=== PATIENT | male | born 1990 | race Caucasian/White ===

== ENCOUNTER 2017-08-17 22:19 | Emergency (ER) | payer OTHER ==
[2017-08-17 22:35] VITALS: BP 130/70; PULSE 86; TEMP 97.8; BMI 26.6
[2017-08-17] MEDS ORDERED: ACETAMINOPHEN 500 MG TABLET (FP) PO ONE (23:41)
--- NOTE | 2017-08-17 23:51 | PDOC ---
History of Present Illness - General History Source: Patient Exam Limitations: No Limitations - History of Present Illness Initial Comments: 27 YOM without remarkable PMH p/w left hand and wrist pain and swelling worsening since sustaining a football injury yesterday at about 7pm. He describes running and falling onto his outstretched left hand, he had initial mild pain, but it has worsened since that time. He now has significant swelling to the entire hand and wrist, but no obvious deformity per his report. He notes mild numbness of the fingers but no tingling or weakness and he is able to move the fingers normally. He took no medications for these symptoms. He denies any additional injuries sustained during this fall, denies hitting his head or losing consciousness. <Jacqueline Leyva - Last Filed: 08/18/17 00:03> <Domonique Madden - Last Filed: 08/18/17 00:32> - General Chief Complaint: Injury Stated Complaint: INJURY Time Seen by Provider: 08/17/17 23:28 Past History - Past Medical History COPD: No - Suicide/Smoking/Psychosocial Hx Smoking History: Current every day smoker Have you smoked in the past 12 months: Yes Number of Cigarettes Smoked Daily: 20 Information on smoking cessation initiated: No Hx Alcohol Use: No Drug/Substance Use Hx: No <Jacqueline Leyva - Last Filed: 08/18/17 00:03> <Domonique Madden - Last Filed: 08/18/17 00:32> - Past Medical History Allergies/Adverse Reactions: Allergies Allergy/AdvReac Type Severity Reaction Status Date / Time No Known Allergies Allergy Verified 08/17/17 22:29 Home Medications: Ambulatory Orders NK [No Known Home Medication] 09/04/15 Review of Systems - Review of Systems Constitutional: No: Chills, Fever, Unexplained wgt Loss HEENTM: No: Nose Congestion, Throat Pain Respiratory: No: Cough, Shortness of Breath Cardiac (ROS): No: Chest Pain, Palpitations, Syncope ABD/GI: No: Constipated, Diarrhea, Nausea, Vomiting : No: Burning, Dysuria Musculoskeletal: Yes: Other (left hand and wrist pain and swelling). No: Back Pain, Neck Pain Integumentary: No: Bruising, Rash Neurological: No: Headache, Numbness, Tingling, Weakness, Dizziness Endocrine: No: Unexplained Weight Gain, Unexplained Weight Loss <Jacqueline Leyva - Last Filed: 08/18/17 00:03> *Physical Exam - Vital Signs Last Vital Signs Temp Pulse Resp BP Pulse Ox 97.8 F 86 16 130/70 98 08/17/17 22:33 08/17/17 22:33 08/17/17 22:33 08/17/17 22:33 08/17/17 22:33 - Physical Exam General Appearance: Yes: Nourished, Appropriately Dressed, Other (well- appearing adult male wearing sling on left arm, answering questions appropriately). No: Apparent Distress HEENT: positive: EOMI, Normal Voice, Hearing Grossly Normal. negative: Scleral Icterus (R), Scleral Icterus (L), Nasal Congestion Neck: positive: Trachea midline, Supple. negative: Tender, Rigid Respiratory/Chest: positive: Lungs Clear, Normal Breath Sounds. negative: Respiratory Distress, Crackles, Rhonchi, Stridor, Wheezing Cardiovascular: positive: Regular Rhythm, Regular Rate. negative: Murmur Gastrointestinal/Abdominal: positive: Normal Bowel Sounds, Soft. negative: Tender, Organomegaly, Pulsatile Mass, Guarding Musculoskeletal: positive: Normal Inspection. negative: Decreased Range of Motion, Vertebral Tenderness Extremity: positive: Normal Capillary Refill, Normal Inspection, Normal Range of Motion, Other (left distal forearm, wrist, and hand with marked swelling worse on the radial aspect overlying the carpal-metacarpal junction, +snuffbox tenderness, +ttp distal radius > distal ulna, pulses intact and strong radial and ulnar arteries, sensation intact, radial/median/ulnar nerves all intact, full ROM digits on the left hand). negative: Tender, Cyanosis Integumentary: positive: Normal Color, Dry, Warm. 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, Fully Oriented, Alert, Normal Mood/ Affect, Normal Response, Motor Strength 5/5 <Jacqueline Leyva - Last Filed: 08/18/17 00:03> - Vital Signs Last Vital Signs Temp Pulse Resp BP Pulse Ox 97.8 F 86 16 130/70 98 08/17/17 22:33 08/17/17 22:33 08/17/17 22:33 08/17/17 22:33 08/17/17 22:33 <Domonique Madden - Last Filed: 08/18/17 00:32> ED Treatment Course - RADIOLOGY Radiology Studies Ordered: Category Date Time Status HAND- LEFT [RAD] Stat Radiology 08/17/17 23:34 Ordered WRIST-LEFT [RAD] Stat Radiology 08/17/17 23:34 Ordered <AutumnJacqueline - Last Filed: 08/18/17 00:03> - Medications Given in the ED: ED Medications Discontinued Medications Generic Name Dose Route Start Last Admin Trade Name Chandana PRN Reason Stop Dose Admin Acetaminophen 1,000 mg 08/17/17 23:41 08/18/17 00:07 Tylenol - PO 08/17/17 23:42 1,000 mg ONCE ONE Administration <Domonique Madden - Last Filed: 08/18/17 00:32> Medical Decision Making - Medical Decision Making 27 YOM who presents more than a day s/p FOOSH to left hand now with pain/ swelling. Pulses intact, mild numbness, swelling but not tight, tenderness to palpation radial>ulnar aspect. No signs of compartment syndrome but the patient does have snuffbox ttp. Ordered is XR hand and forearm on the right with request for scaphoid view. Tylenol 1 Gm ordered for pain. 08/18/17 00:05 Obvious comminuted but nondisplaced distal radius fracture. Also small distal ulnar fracture, unsure acute vs. chronic. Patient will be splinted, ortho will be called. 08/18/17 00:28 Dr. Madden spoke with Ortho who recommends patient coming to their clinic tomorrow morning. Splint check is performed and the patient is discharged after return precautions discussed. <AutumnJacqueline - Last Filed: 08/18/17 00:03> *DC/Admit/Observation/Transfer - Discharge Dispostion Admit: No <AutumnJacqueline - Last Filed: 08/18/17 00:03> <Domonique Madden - Last Filed: 08/18/17 00:32> Diagnosis at time of Disposition: Distal radius fracture, left Qualifiers: Encounter type: initial encounter Fracture type: closed Fracture morphology: unspecified fracture morphology Qualified Code(s): S52.502A - Unspecified fracture of the lower end of left radius, initial encounter for closed fracture Distal end of ulna fracture, closed Qualifiers: Encounter type: initial encounter Fracture morphology: unspecified fracture morphology Laterality: left Qualified Code(s): S52.602A - Unspecified fracture of lower end of left ulna, initial encounter for closed fracture - Discharge Dispostion Disposition: HOME Condition at time of disposition: Stable - Referrals Referrals: Manjit Goetz MD [Staff Physician] - Morgan Del Cid MD [Staff Physician] - - Patient Instructions Printed Discharge Instructions: DI for Forearm Fracture Additional Instructions: You were seen in the ER for a left wrist injury. We did x-rays of the wrist and found fractures of the radius and ulna bones. We gave you Tylenol for pain and placed a splint on the forearm and wrist to stabilize it. We called our on-call orthopedist who recommended that you follow up in their office tomorrow morning . (This is Dr. Del Cid or less likely Bishnu Garrett or Braxton, and their office number is [phone]; see the referral info in this packet). Please take Tylenol for pain, keep the splint on, and follow up with Orthopedics. You can also return to the ER for any new or worsening symptoms like severe pain, inability to move the fingers, or worsening numbness, tingling, swelling, or other symptoms.
[2017-08-17] MEDS ORDERED: ACETAMINOPHEN 325 MG TABLET (FP) ONE (23:54)
== END 2017-08-18 00:39 | disposition home or self-care (01) ==
LOC: JER 22:19
PROC: 2W3DX1Z Immobilization of Left Lower Arm using Splint (ICD-10-PCS; principal; 2017-08-17)
DX: S52.502A Unspecified fracture of the lower end of left radius, initial encounter for closed fracture (principal); S52.602A Unspecified fracture of lower end of left ulna, initial encounter for closed fracture; W18.39XA Other fall on same level, initial encounter; Y93.61 Activity, american tackle football; Y92.89 Other specified places as the place of occurrence of the external cause; Y99.8 Other external cause status
CPT/HCPCS: 73110-TC-LT; 73130-TC-LT; 99282-25

== ENCOUNTER 2018-11-16 22:54 | Day surgery (SDC) | payer OTHER ==
--- NOTE | 2018-11-16 23:25 | PDOC ---
History of Present Illness <Suyapa Reinoso - Last Filed: 11/17/18 00:42> - History of Present Illness Initial Comments: 28 year old with no PMH presenting with sudden onset right testicular pain at 21 :45 PM which had been intermittent and now constant. Describes the pain as sharp and achy with radiation to the pelvis. He is sexually active with multiple females and martínez snot use barrier contraception. Denies any discharge, fevers, or other symptoms. Denies any surgical history. 11/17/18 02:01 <Herminia Miller - Last Filed: 11/17/18 04:34> - General Chief Complaint: Pain Stated Complaint: SWOLLEN TESTICLE Time Seen by Provider: 11/16/18 23:24 Past History <Suyapa Reinoso - Last Filed: 11/17/18 00:42> - Past Medical History COPD: No - Suicide/Smoking/Psychosocial Hx Smoking History: Current every day smoker Have you smoked in the past 12 months: Yes Number of Cigarettes Smoked Daily: 10 Information on smoking cessation initiated: No Hx Alcohol Use: No Drug/Substance Use Hx: No <Herminia Miller - Last Filed: 11/17/18 04:34> - Past Medical History Allergies/Adverse Reactions: Allergies Allergy/AdvReac Type Severity Reaction Status Date / Time No Known Allergies Allergy Verified 11/16/18 22:57 Home Medications: Ambulatory Orders Amoxicillin/Potassium Clav [Augmentin 500-125 Tablet] 1 each PO BID 7 Days #14 tablet 11/17/18 Oxycodone HCl/Acetaminophen [Percocet 5-325 mg Tablet] 1 - 2 tab PO Q4H PRN #20 tablet MDD 6 11/17/18 Review of Systems - Review of Systems Constitutional: No: Chills, Diaphoresis, Fever, Loss of Appetite HEENTM: No: Blurred Vision, Tearing Respiratory: No: Cough, Orthopnea, Shortness of Breath Cardiac (ROS): No: Chest Pain, Edema, Irregular Heart Rate ABD/GI: No: Diarrhea, Nausea, Vomiting : Yes: Pain, Testicular Swelling, Testicular Pain (right testicular swellign an pain). No: Burning, Dysuria, Discharge Integumentary: No: Bruising, Lesions, Lumps Neurological: No: Headache, Numbness, Paresthesia Psychiatric: No: Anxiety, Depression Hematologic/Lymphatic: No: Anemia, Blood Clots, Easy Bleeding <AngelaAmiranando - Last Filed: 11/17/18 04:34> *Physical Exam - Vital Signs Last Vital Signs Temp Pulse Resp BP Pulse Ox 98.7 F 60 18 145/84 99 11/16/18 22:58 11/16/18 22:58 11/16/18 22:58 11/16/18 22:58 11/16/18 23:38 <Suyapa Reinoso - Last Filed: 11/17/18 00:42> - Vital Signs Last Vital Signs Temp Pulse Resp BP Pulse Ox 98.7 F 60 18 145/84 99 11/16/18 22:58 11/16/18 22:58 11/16/18 22:58 11/16/18 22:58 11/16/18 22:58 - Physical Exam General Appearance: Yes: Nourished, Appropriately Dressed. No: Apparent Distress HEENT: positive: EOMI, ITA, Normal ENT Inspection, Normal Voice Neck: positive: Trachea midline, Normal Thyroid, Supple. negative: Tender, Rigid Respiratory/Chest: positive: Lungs Clear, Normal Breath Sounds. negative: Chest Tender, Respiratory Distress Cardiovascular: positive: Regular Rhythm, Regular Rate Gastrointestinal/Abdominal: positive: Normal Bowel Sounds, Flat, Soft. negative : Tender Male Genitalia: positive: testicular tenderness, testicular mass, epididymus tender. negative: normal genitalia (right sided high riding, tranverse lying testicle with positive bialteral cremasteric reflex), discharge Musculoskeletal: positive: Normal Inspection. negative: Decreased Range of Motion Extremity: positive: Normal Capillary Refill, Normal Inspection, Normal Range of Motion. negative: Tender Integumentary: positive: Normal Color, Dry, Warm Neurologic: positive: Fully Oriented, Alert, Normal Mood/Affect, Normal Response , Motor Strength 5/5 <AngelaWendydonta - Last Filed: 11/17/18 04:34> Moderate Sedation - Procedure Monitoring Vital Signs: Procedure Monitoring Vital Signs Temperature 98.7 F 11/16/18 22:58 Pulse Rate 60 11/16/18 22:58 Respiratory Rate 18 11/16/18 22:58 Blood Pressure 145/84 11/16/18 22:58 O2 Sat by Pulse Oximetry (%) 99 11/16/18 23:38 <Suyapa Reinoso - Last Filed: 11/17/18 00:42> - Procedure Monitoring Vital Signs: Procedure Monitoring Vital Signs Temperature 98.7 F 11/16/18 22:58 Pulse Rate 60 11/16/18 22:58 Respiratory Rate 18 11/16/18 22:58 Blood Pressure 145/84 11/16/18 22:58 O2 Sat by Pulse Oximetry (%) 99 11/16/18 22:58 <Herminia Miller - Last Filed: 11/17/18 04:34> ED Treatment Course - ADDITIONAL ORDERS Additional order review: Laboratory Results 11/16/18 23:30 Urine Color Yellow Urine Appearance Slcloudy Urine pH 5.0 Ur Specific [place] 1.023 Urine Protein Negative Urine Glucose (UA) Negative Urine Ketones Negative Urine Blood 2+ H Urine Nitrite Negative Urine Bilirubin Negative Urine Urobilinogen Negative Ur Leukocyte Esterase 2+ H Urine WBC (Auto) 69 Urine RBC (Auto) 4 Ur Epithelial Cells Rare Urine Mucus Many <Suyapa Reinoso - Last Filed: 11/17/18 00:42> - LABORATORY CBC & Chemistry Diagram: 11/17/18 00:50 11/17/18 00:50 <Herminia Miller - Last Filed: 11/17/18 04:34> Medical Decision Making - Medical Decision Making 28 year old male with right sided testicle pain. GC and UA sent and US returned with decreased right testicular flow. Final read demonstrated no testicular flow. Patient discussed with Dr. Matson who kindly took him immediately to the OR. Patient did not receive pain medication and labs were pending. 11/17/18 02:13 <Herminia Miller - Last Filed: 11/17/18 04:34> *DC/Admit/Observation/Transfer - Discharge Dispostion Decision to Admit order: Yes <Suyapa Reinoso - Last Filed: 11/17/18 00:42> <Herminia Miller - Last Filed: 11/17/18 04:34> Diagnosis at time of Disposition: Right testicular torsion - Discharge Dispostion Disposition: HOME Condition at time of disposition: Stable
[2018-11-16 23:45] LABS: URINE APPEARANCE SLCLOUDY; URINE BILIRUBIN NEGATIVE (<2.0 mg/dL); URINE COLOR YELLOW; URINE GLUCOSE (UA) NEGATIVE (NEGATIVE); URINE KETONE NEGATIVE (NEGATIVE); URINE LEUK ESTERASE 2+ (NEGATIVE); URINE NITRITE NEGATIVE (NEGATIVE); URINE PROTEIN NEGATIVE (NEGATIVE); URINE UROBILINOGEN NEGATIVE mg/dL (0.2-1.0)
[2018-11-16 23:48] LABS: EPI CELLS RARE /HPF (FEW); URINE MUCUS MANY
--- NOTE | 2018-11-17 00:36 | PDOC ---
Attending Attestation - Resident Resident Name: Herminia Miller - ED Attending Attestation I have performed the following: I have examined & evaluated the patient, The case was reviewed & discussed with the resident, I agree w/resident's findings & plan, Exceptions are as noted - HPI HPI: 11/17/18 00:36 28-year-old male developed testicular pain at 9:45 this evening - Physicial Exam PE: 11/17/18 00:45 slender 28 yo male with rt testicualr pain that started 9:45 11/17/18 00:4 head ncat neck supple lungs cta b/l abd flat,no rebound right testicular swelling,tenderness skin warm and dry neuro axox3,ambulatory - Medical Decision Making 11/17/18 00:36 His ultrasound with Doppler study of bilateral testicles showed no blood flow to the right testicle. Therefore, a testicular torsion is suspected, particularly if there are right- sided symptoms. Right testicle and epididymitis and also larger than on the left. Right hydrocele . The left testicle and epididymis are normal and homogenous in appearance. There is no evidence of testicular torsion. There is positive Doppler blood flow to the left testicle imp rt testicular torsion pt admitted Urology was consulted and Dr. Pappas is coming in to take the patient to the operating room pt was informed of the need for surgery 11/17/18 00:48 pt taken to the operating room 11/17/18 00:51 11/18/18 03:11
--- NOTE | 2018-11-17 01:00 | CON.GU ---
Consult Consult Specialty:: Reason for Consultation:: R testicular torsion - History of Present Illness Chief Complaint: R testicular pain History of Present Illness: 28 yo m p/w sudden onset R testicular pain since 9:45 PM. Scrotal u/s showed no flow to R testicle. - History Source History Provided By: Patient, Medical Record - Past Surgical History Past Surgical History: Yes: None - Alcohol/Substance Use Hx Alcohol Use: No - Smoking History Smoking history: Current every day smoker Have you smoked in the past 12 months: Yes Aproximately how many cigarettes per day: 10 Home Medications - Allergies Allergies/Adverse Reactions: Allergies Allergy/AdvReac Type Severity Reaction Status Date / Time No Known Allergies Allergy Verified 11/16/18 22:57 - Home Medications Home Medications: Ambulatory Orders NK [No Known Home Medication] 09/04/15 Review of Systems - Review of Systems Genitourinary: reports: Testicular Pain Physical Exam- Vital Signs: Vital Signs Temperature 98.7 F 11/16/18 22:58 Pulse Rate 60 11/16/18 22:58 Respiratory Rate 18 11/16/18 22:58 Blood Pressure 145/84 11/16/18 22:58 O2 Sat by Pulse Oximetry (%) 99 11/16/18 23:38 Gastrointestinal: Yes: WNL, Normal Bowel Sounds, Soft Testicles: Yes: Descended, Tenderness (R) Imaging - Results Ultrasound: Report Reviewed Problem List - Problems (1) Right testicular torsion Assessment/Plan: for R scrotal exploration, possible R orchiectomy, bilat orchidopexy Code(s): N44.00 - TORSION OF TESTIS, UNSPECIFIED
[2018-11-17 01:02] LABS: BASO % 0.4 % (0-2.0); EOS % 0.8 % (0-4.5); HEMATOCRIT 46.3 % (35.4-49); HEMOGLOBIN 16.3 GM/dL (11.7-16.9); LYMPH % 10.3 % (8-40); MCH 33.1 pg (25.7-33.7); MCHC 35.2 g/dl (32.0-35.9); MEAN CELL VOLUME 93.9 fl (80-96); MEAN PLT VOLUME 8.3 fl (7.5-11.1); MONO % 5.6 % (3.8-10.2); NEUT % 82.9 % (42.8-82.8); PLATELET COUNT 310 K/MM3 (134-434); RBC 4.92 M/mm3 (4.00-5.60); RDW 12.6 % (11.9-15.9); WHITE BLOOD COUNT 13.7 K/mm3 (4.0-10.0)
--- NOTE | 2018-11-17 01:02 | OP ---
Operative Note - Note: Operative Date: 11/17/18 Pre-Operative Diagnosis: R testicular torsion Operation: R scrotal exploration, detorsion, bilat orchidopexy Findings: R testicular torsion Post-Operative Diagnosis: Same as Pre-op Surgeon: Kishor Pappas Anesthesiologist/SPRAY GUNNER: Shan Farrell Anesthesia: General Estimated Blood Loss (mls): 0 Operative Report Dictated: Yes
[2018-11-17] MEDS ORDERED: oxyCODONE HCL 5 MG TABLET PO PRN (01:07)
[2018-11-17] MEDS ORDERED: ACETAMINOPHEN 325 MG TABLET (FP) PO PRN (01:07)
[2018-11-17 01:11] LABS: PROTHROMBIN TIME (PATIENT) 11.8 SEC (9.7-13.0)
[2018-11-17] MEDS ORDERED: LIDOCAINE HCL/PF 2% SDV 5ML VIAL ONE (01:17)
[2018-11-17] MEDS ORDERED: PROPOFOL 20 ML ONE (01:17)
[2018-11-17] MEDS ORDERED: SUCCINYLCHOLINE CHLORIDE 200 MG/10 ML VIAL ONE (01:19)
[2018-11-17] MEDS ORDERED: ceFAZolin SODIUM 1 GM VIAL ONE (01:24)
[2018-11-17] MEDS ORDERED: ceFAZolin SODIUM 1 GM VIAL IVPB ONE (01:24)
[2018-11-17 01:31] LABS: ALBUMIN 4.4 g/dl (3.4-5.0); CO2 27 mmol/L (21-32)
[2018-11-17] MEDS ORDERED: DEXAMETHASONE SOD PHOSPHATE 4 MG/1 ML VIAL ONE (01:35)
[2018-11-17] MEDS ORDERED: BUPIVACAINE HCL/PF 0.5% (5MG/ML) 10 ML VIAL ONE (01:45)
[2018-11-17] MEDS ORDERED: BACITRACIN 15 GM TUBE TOPICAL OINTMENT ONE (01:54)
[2018-11-17 01:58] LABS: ALK PHOS 89 U/L (45-117); ANION GAP 6 MMOL/L (8-16); BILIRUBIN,TOTAL 0.8 mg/dL (0.2-1); BLOOD UREA NITROGEN 9 mg/dL (7-18); CALCIUM 8.9 mg/dL (8.5-10.1); CHLORIDE 102 mmol/L (98-107); GLUCOSE,RANDOM 107 mg/dL (74-106); POTASSIUM 4.8 mmol/L (3.5-5.1); SGOT/AST 43 U/L (15-37); SGPT/ALT 36 U/L (13-61); SODIUM 136 mmol/L (136-145); TOT PROT 8.2 g/dl (6.4-8.2)
[2018-11-17] MEDS ORDERED: KETOROLAC TROMETHAMINE 30 MG/1 ML VIAL ONE (02:27)
[2018-11-17] MEDS ORDERED: ACETAMINOPHEN INJECTION 100 ML IVPB ONE (02:27)
[2018-11-17] MEDS ORDERED: ACETAMINOPHEN 1000 MG/100 ML VIAL (NON FORMULARY) IVPB ONE (02:45)
[2018-11-17] MEDS ORDERED: KETOROLAC TROMETHAMINE 30 MG/1 ML VIAL IVPUSH ONE (02:45)
[2018-11-17 04:20] VITALS: BMI 26.4
--- NOTE | 2018-11-17 09:53 | OP ---
DATE OF OPERATION: 11/17/2018 PREOPERATIVE DIAGNOSIS: Right testicular torsion. POSTOPERATIVE DIAGNOSIS: Right testicular torsion. PROCEDURE: Right scrotal exploration, detorsion, bilateral orchidopexy. SURGEON: Kishor Pappas MD PROGRAM STRATEGIST: None. ANESTHESIA: General via endotracheal tube. ANESTHESIOLOGIST: Shan Farrell MD SPECIMENS: None. CULTURES: None. DRAINS: None. ESTIMATED BLOOD LOSS: None. COMPLICATIONS: None. PROCEDURE WAS FOLLOWS: Patient was brought into the operating room, placed on the operating table in the supine position. After administration of general anesthesia via laryngeal mask, intravenous antibiotics were administered. The genitals were shaved first and prepped and draped in the usual sterile manner. A midline scrotal incision was made of approximately 4 cm on the median raphe. The underlying dartos muscle was divided. The tunica vaginalis was opened on the right side, and the right testicle was delivered through the wound. It was noted to be blue in color and cyanotic. There was a 360-degree torsion. It was detorsed. Warm saline compression was placed. A warm saline-soaked lap pad was placed, and the left side was approached now. The dartos muscle was divided. The tunica vaginalis was opened. The testicle was delivered through the wound on the left side. This testicle was normal. Three sutures of 4-0 Prolene were now placed in three quadrants, lateral, medial, and inferiorly. The stitches were then placed through the tunica vaginalis and through the dartos muscle. The testicle was replaced within the left hemiscrotum, and the three sutures were tied. Now, reinspection of the right testicle demonstrated that it had improved in color and appeared viable. Three sutures of 4-0 Prolene were now placed in a similar manner medially, laterally, and inferiorly, passed through the tunica vaginalis to the dartos muscle. Testicle was replaced within the right hemiscrotum and the three sutures were tied and then cut. The wound was closed in layers, closing the dartos layer with a running 3-0 Vicryl suture, one on each side. Now, the skin was closed in midline with interrupted 4-0 chromic vertical mattress sutures. Dermabond was applied. Fluffs in a scrotal support were placed. He was awoken from anesthesia in the operating room, extubated, transferred to the recovery room in stable condition after tolerating the procedure well. Emanuel [id number]
[2018-11-17 12:42] VITALS: BP 142/84; PULSE 66; TEMP 98.3
== END 2018-11-17 12:38 | disposition home or self-care (01) ==
LOC: JER 22:54 → JERBED 11-17 00:43 → UNDOADMIN 11-17 00:43 → JASUSAT 11-17 01:03 → JERBED 11-17 03:22 → J6S 11-17 03:22 → JASUSAT 11-17 12:38
PROVIDERS: ATTEND Urology
PROC: 0VSC0ZZ Reposition Bilateral Testes, Open Approach (ICD-10-PCS; principal; 2018-11-17 00:52)
DX: N44.00 Torsion of testis, unspecified (principal)
CPT/HCPCS: 36415; 76870-TC; 80053; 81003; 81015; 83605; 85025; 85610; 86850; 86900; 86901; 87086; 87491; 87591; 94760; 99284-25; J0131

== ENCOUNTER 2019-11-22 19:17 | Emergency (ER) | payer OTHER ==
[2019-11-22 19:48] VITALS: BP 155/92; PULSE 96; TEMP 98; BMI 29.5
--- NOTE | 2019-11-22 19:48 | PDOC ---
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 Complaining of pain to finger PE: alert and oriented x 3 unlabored breathing right 4th digit with laceration and swelling Orders: xray ordered This patient will proceed to main ed for further evaluation Discharge Disposition - Diagnosis Finger injury - Referrals - Patient Instructions - Post Discharge Activity
[2019-11-22] MEDS ORDERED: ceFAZolin 2 GRAM PREMIX BAG IVPB ONE (21:33)
[2019-11-22] MEDS ORDERED: TETANUS AND DIPHTHERIA TOXOID 0.5 ML DISP.SYRIN IM ONE (22:09)
[2019-11-22] MEDS ORDERED: DIPHTH,PERTUSS(ACELL),TET 0.5 ML DISP.SYRIN IM ONE (22:11)
--- NOTE | 2019-11-22 22:16 | PDOC ---
History of Present Illness - General Chief Complaint: Injury Stated Complaint: LACERATION Time Seen by Provider: 11/22/19 19:46 - History of Present Illness Initial Comments: 11/22/19 22:21 29-year-old male without comorbidities presents for evaluation of right fourth finger pain after getting his finger caught in between the elevator door and the roof of the elevator Past History - Past Medical History Allergies/Adverse Reactions: Allergies Allergy/AdvReac Type Severity Reaction Status Date / Time No Known Allergies Allergy Verified 11/22/19 19:45 Home Medications: Ambulatory Orders Amoxicillin/Potassium Clav [Augmentin 500-125 Tablet] 1 each PO BID 7 Days #14 tablet 11/17/18 Oxycodone HCl/Acetaminophen [Percocet 5-325 mg Tablet] 1 - 2 tab PO Q4H PRN #20 tablet MDD 6 11/17/18 Azithromycin 250 mg PO ONCE #4 tablet 11/28/18 Ciprofloxacin HCl [Cipro] 500 mg PO BID #6 tablet 11/22/19 COPD: No - Immunization History Immunization Up to Date: No - Psycho Social/Smoking Cessation Hx Smoking History: Current every day smoker Have you smoked in the past 12 months: Yes Number of Cigarettes Smoked Daily: 10 Information on smoking cessation initiated: No Hx Alcohol Use: No Drug/Substance Use Hx: No Review of Systems - Review of Systems Musculoskeletal: Yes: Joint Pain *Physical Exam - Vital Signs Last Vital Signs Temp Pulse Resp BP Pulse Ox 98.0 F 96 H 20 155/92 100 11/22/19 19:46 11/22/19 19:46 11/22/19 19:46 11/22/19 19:46 11/22/19 19:46 - Physical Exam 11/22/19 22:21 Right fourth finger nail was removed there is a linear laceration horizontally oriented at the distal aspect of the nailbed encompassing the radial aspect of the right fourth finger at the tip the fracture is not visualized grossly. There are no gross sensory or motor deficits. Medical Decision Making - Medical Decision Making 11/22/19 22:12 D/W ER Attending who saw the patient as well, Also called [facility] transfer center in consult for hand surgery Dr Reid, awaiting call back 11/22/19 22:21 Dr Reid in agreement with treatment and plan pt to f/u with hand clinic at [facility] 11/22/19 22:22 Using 6 cc of 1% lidocaine without epinephrine a digital block was performed aseptically. After appropriate anesthesia, the nail was removed the laceration copiously irrigated with normal saline. Sterilely prepped closed with 4 interrupted 3-0 chromic gut sutures sterile Xeroform and dry sterile dressing was placed. Patient tolerated this procedure well. Discharge - Discharge Information Problems reviewed: Yes Clinical Impression/Diagnosis: Finger injury, Open fracture of tuft of distal phalanx of finger Condition: Stable Disposition: HOME - Admission No - Follow up/Referral Referrals: Florian Hodgson MD [Primary Care Provider] - Morgan Del Cid MD [Staff Physician] - - Patient Discharge Instructions Additional Instructions: Please keep the dressing on for the next 48 hours. After 48 hours you may remove the dressing and wash the area gently with soap and water. Please take the antibiotics as directed your tetanus shot was updated today. Without fail follow-up with hand surgery in 2 to 3 days for further evaluation and treatment options. If you cannot obtain follow-up within 48 hours return to the emergency room on Friday in 48 hours from the date of injury for a wound check. Tylenol Motrin as directed for pain. - Post Discharge Activity
== END 2019-11-22 22:48 | disposition home or self-care (01) ==
LOC: JERFT 19:17
PROC: 0HBQXZZ Excision of Finger Nail, External Approach (ICD-10-PCS; principal; 2019-11-22)
PROC: 3E0234Z Introduction of Serum, Toxoid and Vaccine into Muscle, Percutaneous Approach (ICD-10-PCS; 2019-11-22)
PROC: 3E03329 Introduction of Other Anti-infective into Peripheral Vein, Percutaneous Approach (ICD-10-PCS; 2019-11-22)
DX: S62.634B Displaced fracture of distal phalanx of right ring finger, initial encounter for open fracture (principal); W23.0XXA Caught, crushed, jammed, or pinched between moving objects, initial encounter; Y93.89 Activity, other specified; Y92.89 Other specified places as the place of occurrence of the external cause; Y99.0 Civilian activity done for income or pay; F17.210 Nicotine dependence, cigarettes, uncomplicated
CPT/HCPCS: 11750; 73130-TC-RT-FY; 73140-TC-RT-FY; 90471; 96374; 99284-25

== ENCOUNTER 2019-11-24 11:09 | Emergency (ER) | payer OTHER ==
[2019-11-24 11:53] VITALS: BP 157/98; PULSE 91; TEMP 98.3; BMI 29.5
--- NOTE | 2019-11-24 12:26 | PDOC ---
History of Present Illness - General Chief Complaint: Revisit,Wound Recheck Stated Complaint: WOUND CHECK Time Seen by Provider: 11/24/19 11:55 - History of Present Illness Initial Comments: 11/24/19 12:23 29-year-old male presents for return evaluation of right fourth finger wound check. He has not followed up with orthopedic hand at this point. I did speak to them after I saw him initially in the emergency room he did complain of increasing pain in his finger after the nailbed repair. I did prescribe him Percocet. He continues to take his Cipro he has no systemic symptoms he only complains of throbbing pain which is proportional to the injury. Past History - Past Medical History Allergies/Adverse Reactions: Allergies Allergy/AdvReac Type Severity Reaction Status Date / Time No Known Allergies Allergy Verified 11/24/19 11:53 Home Medications: Ambulatory Orders Amoxicillin/Potassium Clav [Augmentin 500-125 Tablet] 1 each PO BID 7 Days #14 tablet 11/17/18 Oxycodone HCl/Acetaminophen [Percocet 5-325 mg Tablet] 1 - 2 tab PO Q4H PRN #20 tablet MDD 6 11/17/18 Azithromycin 250 mg PO ONCE #4 tablet 11/28/18 Ciprofloxacin HCl [Cipro] 500 mg PO BID #6 tablet 11/22/19 Oxycodone HCl/Acetaminophen [Percocet 5-325 mg Tablet] 1 - 2 tab PO Q4H #20 tablet MDD 6 11/23/19 COPD: No - Immunization History Immunization Up to Date: No - Psycho Social/Smoking Cessation Hx Smoking History: Never smoked Have you smoked in the past 12 months: Yes Number of Cigarettes Smoked Daily: 10 Information on smoking cessation initiated: No Hx Alcohol Use: No Drug/Substance Use Hx: No Review of Systems - Review of Systems Constitutional: No: Fever *Physical Exam - Vital Signs Last Vital Signs Temp Pulse Resp BP Pulse Ox 98.3 F 91 H 17 157/98 98 11/24/19 11:52 11/24/19 11:52 11/24/19 11:52 11/24/19 11:52 11/24/19 11:52 - Physical Exam 11/24/19 12:24 The dressing which was placed on in the emergency room 2 days ago after the nailbed repair was removed the finger was washed with soap and water he has mild ecchymosis on the skin overlying the fat pad on the volar aspect of the finger. Appropriate swelling and tenderness the wound is otherwise clean dry and intact. The nail remains repositioned underneath the nail fold in the appropriate position. No gross sensorimotor deficits. Medical Decision Making - Medical Decision Making 11/24/19 12:25 Splint was applied for protection orthopedic hand surgery was stressed for follow-up discussed the use of the antibiotics and the pain medication. I have reviewed the pathophysiology with the patient. They are in agreement with the treatment plan all questions were answered to their satisfaction. Understanding for follow-up without fail was also conveyed to the patient. Again they are in agreement. Discharge - Discharge Information Problems reviewed: Yes Clinical Impression/Diagnosis: Visit for wound check, Finger injury Condition: Stable Disposition: HOME - Admission No - Follow up/Referral Referrals: Florian Hodgson MD [Primary Care Provider] - - Patient Discharge Instructions Additional Instructions: Please use the splint for comfort. Please leave the finger open to air as much as possible. Do not wear the splint while at home and sitting around. Leave the finger open to air. You may wash with normal soap and water. Do not apply any ointment such as bacitracin or Neosporin. Continue the antibiotics as directed and finish the course. Pain medication as prescribed. Return to the emergency room for further issues and without fail follow-up with orthopedic hand surgery in 1 to 2 days for further evaluation and treatment options. - Post Discharge Activity
== END 2019-11-24 12:28 | disposition home or self-care (01) ==
LOC: JERFT 11:09
DX: Z48.01 Encounter for change or removal of surgical wound dressing (principal)
CPT/HCPCS: 99281-25